=== PATIENT | female | born 1955 | race Two or more races ===

== ENCOUNTER 2016-08-24 07:37 | Emergency (ER) | payer MEDICAID ==
[~2016-08-24] VITALS: Ht 160 cm; Wt 59.0 kg
[2016-08-24 07:55] VITALS: BP 131/60
[2016-08-24] MEDS ORDERED: KETOROLAC TROMETH 60MG/2ML VIAL IM ONE (09:15)
== END 2016-08-24 09:47 | disposition home or self-care (01) ==
LOC: ER 07:37
DX: G89.29 Other chronic pain (principal); M54.5 Low back pain; Z76.0 Encounter for issue of repeat prescription
CPT/HCPCS: 96372; 99283; J1885

== ENCOUNTER 2018-08-19 09:26 | Emergency (ER) | payer MEDICAID ==
[~2018-08-19] VITALS: Ht 160 cm; Wt 59.0 kg
[2018-08-19 09:35] VITALS: BP 140/85
[2018-08-19] MEDS ORDERED: KETOROLAC TROMETH 60MG/2ML VIAL IM ONE (13:00)
== END 2018-08-19 14:20 | disposition home or self-care (01) ==
LOC: ER 09:28
DX: G89.29 Other chronic pain (principal); M54.5 Low back pain; Z87.891 Personal history of nicotine dependence
CPT/HCPCS: 96372; 99283; J1885

== ENCOUNTER 2021-02-27 12:19 | Emergency (ER) | payer MEDICAID, MEDICARE ==
[~2021-02-27] VITALS: Ht 162.6 cm; Wt 59.0 kg
[2021-02-27 13:09] LABS: Urine Bacteria NONE SEEN /hpf (None Seen); Urine Blood TRACE /uL (Negative); Urine Specific Gravity 1.004 (1.001-1.035); Urine WBC 1 /hpf (0 - 5)
[2021-02-27 13:09] LABS: Eosinophils # (auto) 0.1 10 ^3/uL (0-0.8); Mean Corpuscular Hemoglobin 25.6 pg (28.0-32.0); Mean Corpuscular Hgb Conc. 32.8 g/dL (32.0-36.0); Monocytes # (auto) 0.2 10 ^3/uL (0-1.3); Red Blood Cells 4.47 10^6/uL (4.0-5.20); White Blood Cell 3.5 10^3/uL (4.4-10.8)
[2021-02-27 13:11] LABS: Basophils # (auto) 0.1 10 ^3/uL (0-0.2); Basophils % (auto) 2.7 % (0.0-2.0); Eosinophils % (auto) 1.9 % (0.0-7.0); Hematocrit 34.9 % (36.0-46.0); Hemoglobin 11.5 g/dL (12.2-16.2); Lymphocytes % (auto) 28.6 % (10.0-50.0); Monocytes % (auto) 6.7 % (0.0-12.0); Neutrophils # (auto) 2.1 10 ^3/uL (1.6-8.6); Neutrophils % (auto) 60.1 % (37.0-80.0); Nucleated Red Blood Cells % 0.2 %; Red Cell Distribution Width 15.9 % (11.8-14.3)
[2021-02-27 13:19] LABS: Albumin 3.1 g/dL (3.4-5.0); BUN/Creatinine Ratio 12.5; Calcium 8.3 mg/dL (8.5-10.1); Potassium 3.4 mmol/L (3.5-5.1)
[2021-02-27] MEDS ORDERED: IOHEXOL 300 MG/ML 100ML BOTTLE IJ ONE (19:35)
[2021-02-27 19:50] VITALS: BP 146/69
== END 2021-02-27 21:39 | disposition home or self-care (01) ==
LOC: ER 12:19
DX: K59.00 Constipation, unspecified (principal); K74.69 Other cirrhosis of liver; R10.9 Unspecified abdominal pain
CPT/HCPCS: 36415; 74177; 80053; 81001; 85025; 99285; Q9967

== ENCOUNTER 2025-02-12 17:55 | Emergency (ER) | payer OTHER, MEDICAID ==
[~2025-02-12] VITALS: Ht 162.6 cm; Wt 63.5 kg
[2025-02-12 17:56] VITALS: BP 164/89; PULSE 83; RESP 16; TEMP 98.6; O2SAT 93
--- NOTE | 2025-02-12 18:37 | ED.PDOC ---
Back pain HPI HPI Comments Pt presents to the ER with C/O acute on chronic back pain. Pt reports back pain is from prior back injury in 2022. Patient notes yesterday she received acupuncture and since the pain has been severe 10/10 mid back pain sharp and throbbing nonradiating type pain. Patient denies any new injury. Denies numbness, weakness, loss of bowel bladder control, saddle anesthesia, fever or chills. 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 History Family History Family History: Reviewed,noncontributory to illness Social History Smoker: Non-Smoker Alcohol: Denies ETOH Use Drugs: Denies Drug Use Lives In: Home All Other Systems: Reviewed and Negative (see hpi) Physical Exam General Appearance: No Apparent Distress, Normal HEENT: Pharynx Normal Neck: Full Range of Motion, Non-Tender Respiratory: Lungs Clear, No Respiratory Distress, Normal Breath Sounds Cardiovascular: No Edema, No JVD, No Murmur, No Gallop, Normal Peripheral Pulses, Regular Rate/Rhythm Breast Exam: Deferred Gastrointestinal: No Organomegaly, Non Tender, No Pulsatile Mass, Normal Bowel Sounds, Soft Genitalia: Deferred Pelvic: Deferred Rectal: Deferred Extremities: Normal capillary refill, Normal range of motion, Non-tender, No pedal edema Musculoskeletal : Location: Bilateral Extremity Location: Back (Moderate to severe tenderness palpated over T6 through T12 paraspinal muscles tenderness noted under thoracic spine without step-offs or crepitus. Strength sensory and motion intact upper and lower extremities positive radial and pedal pulses. Noted external gross trauma) Apperance: Normal Neurologic: Alert, No Motor Deficits, Normal Affect, Normal Mood, No Sensory Deficits Cerebellar Function: Normal Reflexes: Normal Skin: Dry, Normal Color, Warm Lymphatic: No Adenopathy Was a procedure done? Was a procedure done?: No Back Pain Differential Dx Differential Diagnosis: Fracture, Musculoskeletal Pain, Strain X-Ray, Labs, Meds, VS Vital Signs Date Time Temp Pulse Resp B/P (MAP) Pulse Ox O2 Delivery O2 Flow Rate FiO2 02/12/25 17:56 98.6 83 16 164/89 93 98.6 X-Ray, Labs, Meds, VS Comment Patient given Toradol 60 mg IM, and Decadron 10 mg IM, refused [place]. Reports improvement in Pain and function requesting discharge at this time. Trial of muscle relaxer and Medrol Dosepak. Advised take medication as prescribed side effects discussed. Per PCP in 2-3 days consider referral for pain management and/or physical therapy. Advised on ER return precautions patient indicated understanding and agrees with discharge plan of care. Time of 1ST Reevaluation: 18:35 Reevaluation 1ST: Unchanged Time of 2ND Reevaluation: 19:25 Reevaluation 2ND: Improved Patient Education/Counseling: Diagnosis, Treatment, Prognosis, Need For Follow Up Family Education/Counseling: Diagnosis, Treatment, Prognosis, Need For Follow Up SEPSIS Sepsis Screen Date sepsis recognized/suspect: Feb 12, 2025 Time Sepsis recognized/suspect: 1755 Recent Procedure: No On Antibiotic Therapy: No Respiratory Rate >20: No Heart Rate >90: No Temp<36 C (96.8 F) or >38.3 C: No SBP <90 or MAP <65 mmHG: No New Acute Mental Status Change: No Is the patient on CPAP, BIPAP,: No Vital Signs Date Time Temp Pulse Resp B/P (MAP) Pulse Ox O2 Delivery O2 Flow Rate FiO2 02/12/25 17:56 98.6 83 16 164/89 93 98.6 Departure 1 Departure Time of Disposition: 19:23 Impression: Primary Impression: Acute exacerbation of chronic low back pain Additional Impression: Musculoskeletal pain Disposition: 01 HOME / SELF CARE / HOMELESS Condition: Stable e-Prescriptions Methocarbamol (Methocarbamol) 500 Mg Tab 500 MG PO BID PRN for 5 Days, #10 TAB Prov: STACY LAKE 02/12/25 Methylprednisolone (Medrol Dosepak) 4 Mg Scotty 4 MG PO UD for 6 Days, #21 TAB UAD Prov: STACY LAKE 02/12/25 Discharged With: Spouse Critical Care Note Critical Care Time?: No Stability Stability form required: No STACY LAKE Feb 12, 2025 18:37
[2025-02-12] MEDS: HYDROcodone-ACET 5/325MG TAB PO ONE (19:13)
[2025-02-12] MEDS: KETOROLAC TROMETH 60MG/2ML VIAL IM ONE (19:23)
[2025-02-12] MEDS ORDERED: METH-1181 PO (19:25)
[2025-02-12] MEDS ORDERED: METH4PAK PO (19:25)
== END 2025-02-12 19:37 | disposition home or self-care (01) ==
LOC: ER 17:55
DX: G89.29 Other chronic pain (principal)
CPT/HCPCS: 96372; 99284; J1100; J1885